=== PATIENT | female | born 1995 | race Hispanic/Latino ===

== ENCOUNTER 2017-11-18 12:51 | Observation (INO) | payer MEDICAID, OTHER ==
[2017-11-18] VITALS (23 sets, daily range): BP systolic 108–139; BP diastolic 60–80
[2017-11-18 14:22] LABS: BASOPHILS % (AUTO) 0.5 % (0.0-5.0); EOSINOPHILS % (AUTO) 0.4 % (0.0-8.0); HEMATOCRIT 37.5 % (36-48); LYMPHOCYTES % (AUTO) 15.3 % (21.0-51.0); MEAN CORPUSCULAR HEMOGLOBIN 27.3 pg (27.0-33.0); MEAN CORPUSCULAR HGB CONC 34.3 g/dL (32.0-36.0); MEAN CORPUSCULAR VOLUME 79.6 fL (79-99); MONOCYTES % (AUTO) 5.9 % (3.0-13.0); NEUTROPHILS % (AUTO) 77.9 % (40.0-77.0); PLATELET COUNT (AUTO) 350 K/uL (130-400); RED BLOOD CELL COUNT(AUTO) 4.71 MIL/uL (4.00-5.50); RED CELL DISTRIBUTION WIDTH 13.4 % (11.0-15.5); WHITE BLOOD COUNT (AUTO) 9.4 K/uL (4.8-10.8)
[2017-11-18 14:34] LABS: CREATININE 0.7 mg/dL (0.5-1.5); POTASSIUM 4.1 mmol/L (3.5-5.1)
[2017-11-18 14:37] LABS: APPEARANCE,URINE Clear (CLEAR); BILIRUBIN,URINE Negative (NEGATIVE); COLOR,URINE Yellow (YELLOW); GLUCOSE, URINE (UA) Negative (NEGATIVE); KETONES,URINE Negative (NEGATIVE); LEUKOCYTE ESTERASE ,URINE Trace (NEGATIVE); NITRATE,URINE Negative (NEGATIVE); OCCULT BLOOD,URINE Large (NEGATIVE); PH,URINE 8.5 (5.0-8.0); PROTEIN,URINE Negative (NEGATIVE)
[2017-11-18 14:55] LABS: HCG,QUAL RESULT POSITIVE (NEGATIVE)
[2017-11-18 15:30] LABS: BACTERIA,URINE Rare /HPF (None Seen); RBC,URINE 26-50 /HPF (0-1); SQUAMOUS EPITHELIAL CELL,UR Rare /HPF (0-2)
[2017-11-18] MEDS ORDERED: LIDOCAINE PF 2% 5ML ABBOJECT ONE (16:25)
[2017-11-18] MEDS ORDERED: DEXAMETHASONE SOD PHOSPHATE 10MG/ML 1ML VIAL ONE (16:25)
[2017-11-18] MEDS ORDERED: GLYCOPYRROLATE 0.2 MG/ML 5 ML VIAL ONE (16:25)
[2017-11-18] MEDS ORDERED: ONDANSETRON HCL 4 MG/2 ML VIAL ONE (16:25)
[2017-11-18] MEDS ORDERED: NEOSTIGMINE 5MG/5ML SYR IV ONE (16:25)
[2017-11-18] MEDS ORDERED: FENTANYL CITRATE PF 50 MCG/1 ML 2ML VIAL ONE ×2 (16:26→17:00)
[2017-11-18] MEDS ORDERED: MIDAZOLAM HCL 1 MG/ML 2ML VIAL ONE (16:26)
[2017-11-18] MEDS ORDERED: PROPOFOL 10 MG/ML 20ML VIAL IV ONE (16:26)
[2017-11-18] MEDS ORDERED: LACTATED RINGERS 1000ML 1,000 ML IV ONE (16:29)
[2017-11-18] MEDS ORDERED: MEPERIDINE-PF 25 MG/ML SYG ONE ×2 (17:53→18:06)
== END 2017-11-18 21:55 | disposition home or self-care (01) ==
LOC: EDH 12:51 → EDHIP 12:52 → WSH 19:32
PROVIDERS: ADMIT Obstetrics & Gynecology; ATTEND Obstetrics & Gynecology
DX: O00.90 Unspecified ectopic pregnancy without intrauterine pregnancy (principal); O03.9 Complete or unspecified spontaneous abortion without complication; Z3A.01 Less than 8 weeks gestation of pregnancy
CPT/HCPCS: 36415; 59151; 76801; 80048; 81001; 81025; 84702; 85025; 86900; 86901; 88305; 99285; A4215; A4649 ×3; A4930; C1769 ×3; G0378 ×9; J1100; J2001; J2175 ×2; J2250; J2405; J2704; J2710; J3010 ×2; J3490; J7030; J7120